=== PATIENT | female | born 1990 | race Caucasian/White ===

== ENCOUNTER → 2017-04-20 16:22 | Outpatient (CLI) | payer BC ==
[2016-06-30 11:28] VITALS: BMI 24.6
[~2017-04-20 16:22] MED LIST: IBUPROFEN600 MG PO; PERCOCET 5-3251 TAB PO; PRENAVITE1 TAB PO
[2017-04-20 17:51] LABS: T4 THYROXINE 7.1 ug/dL (4.7-13.3); THYROID STIMULATING HORMONE 1.02 uIU/mL (0.36-3.74)
== END | disposition home or self-care (01) ==
LOC: D.LABREF 16:22
PROVIDERS: Internal Medicine Cardiovascular Disease
DX: R00.2 Palpitations (principal)

== ENCOUNTER → 2017-05-05 11:38 | Outpatient (CLI) | payer BC ==
[2016-06-30 11:28] VITALS: BMI 24.6
--- NOTE | ~2017-05-05 | EC ---
PATIENT:LOCO LIVINGSTON DATE OF SERVICE: 05/05/17 SEX: F MEDICAL RECORD: [id number] DATE OF : [birth year] LOCATION:D[facility] AGE OF PATIENT: 26 ADMISSION DATE: 05/05/17 REFERRING PHYSICIAN: INTERPRETING PHYSICIAN: JUSTIN PATTERSON MD ECHOCARDIOGRAM REPORT ECHO CHARGES 4 ECHO COMPLETE CLINICAL DIAGNOSIS: BUBBLE STUDY, DYSPNEA ECHOCARDIOGRAPHIC MEASUREMENTS (adult normal given) AC root (d.<3.7cm) 2.4 cm LV Septum d (<1.2 cm> 0.90 cm Valve Excursion 1.1 cm LV Septum (systole) 1.1 cm Left Atria (s.<4.0cm> 2.8 cm LVPW d(<1.2cm) 0.80 cm RV (d.<2.3cm) 3.6 cm LVPW (sytole) 1.3 cm LV diastole(<5.6CM) 4.0 cm MV E-F(>70mm/sec) 2.8 cm LV systole 2.8 cm LVOT Diameter 1.5 cm MV exc.(>10mm) 1.7 cm Est.ejection fraction (50-75%) % Pericardial Effusion N DOPPLER: LVIT cm/sec A 53.0 cm/sec E 104 cm/sec LA cm/sec RVSP mmHg LVOT 116 cm/sec AOP1/2T 31 m/s Asc. 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 FINDINGS: 1. Bubbles were injected into the venous structure and were seen to traverse into the right ventricle through the right atrium and there were no bubbles identified with incomplete cardiac cycles of at least 10 beats on the left-sided structures. 2. Left ventricle is difficult to visualize, but appears to have normal ECHOCARDIOGRAM REPORT [id number] LOCO [facility] structure with normal function. 3. The mitral valve is grossly normal. No significant mitral regurgitation. 4. Tricuspid valve has mild tricuspid regurgitation with right ventricular systolic pressure estimated at 31 mmHg. 5. The pulmonic valve is not well visualized, but via Doppler evaluation, appears to be normal. 6. The right atrium appears to be mildly dilated. 7. The left atrium is normal size, normal structure with normal function. 8. The aortic valve is normal size, normal structure with normal function. 9. The pericardium is demonstrated to be normal. CONCLUSIONS: The patient has normal echocardiogram with no evidence of PFO or ASD via transthoracic echocardiogram bubble study. TRANSINT:[id number] Voice Confirmation ID: [id number] DOCUMENT ID: [id number] JUSTIN PATTERSON MD CC: [id number] DICTATION DATE: 05/09/17813 [facility] [facility] SUPERVISOR: 05/09/17 0832 DEP CLI 05/05/17 [id number] [place] [address]
== END | disposition home or self-care (01) ==
LOC: D.ECHO 10:35
DX: R06.00 Dyspnea, unspecified (principal)